=== PATIENT | male | born 1960 | race Caucasian/White ===

== ENCOUNTER 2019-11-09 12:55 | Inpatient (IN) | payer MEDICARE, SELFPAY ==
[2019-11-09] VITALS (12 sets, daily range): BP systolic 113–155; BP diastolic 60–96; PULSE 83–98; RESP 8–36; TEMP 37.2–37.4; O2SAT 91–98; BMI 47.4
--- NOTE | 2019-11-09 13:05 | XRR_ITS ---
PROCEDURE INFORMATION: Exam: XR Chest, 1 View Exam date and time: 11/09/2019 2:02 PM Age: 58 years old Clinical indication: Patient HX: Hyperglycemia, copd, cough TECHNIQUE: Imaging protocol: XR of the chest Views: 1 view. COMPARISON: No relevant prior studies available. FINDINGS: Lungs: There is interstitial congestion in the right lower lobe the lungs are otherwise clear. No consolidation. Pleural space: Unremarkable. No pleural effusion. No pneumothorax. Heart/Mediastinum: Unremarkable. No cardiomegaly. Bones/joints: Unremarkable. XR/XR chest 1V portable [id number] IMPRESSION: Nonspecific interstitial congestion right lower lobe Otherwise No acute findings.
--- NOTE | 2019-11-09 13:06 | ECG_ITS ---
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 Measurements Intervals [place] Rate: 93 P: 51 [place]: 206 QRS: 85 QRSD: 75 T: 67 QT: 332 QTc: 414 Interpretive Statements SINUS RHYTHM WITH OCCASIONAL VENTRICULAR PREMATURE COMPLEXES LOW QRS VOLTAGE IN PRECORDIAL LEADS [QRS DEFLECTION < 1.0 mV IN CHEST LEADS] ANTEROSEPTAL MYOCARDIAL INFARCTION , OF INDETERMINATE AGE [40+ ms Q WAVE IN V1-V4] Compared to ECG 04/06/2019 04:43:59 Ventricular premature complex(es) now present Low QRS voltage now present Myocardial infarct finding still present Electronically Signed On 11-09-2019 17:06:18 CDT by Sarika Mackey M.D. [id number]
--- NOTE | 2019-11-09 13:14 | W.ED.GENADLT ---
HPI - General Adult General: Chief complaint: General Medical Stated complaint: HYPERGLYCEMIA, COPD Time Seen by Provider: 11/09/19 12:56 Source: patient and EMS Mode of arrival: EMS Limitations: no limitations History of Present Illness: HPI narrative: Mr. Johnson is a very nice 58-year-old male who comes in complaining of shortness of breath and elevated blood sugar. He states his blood sugars been progressively elevating over the past 2 weeks. He also complains of shortness of breath with the cough productive of clear to occasionally brown sputum. He denies any fever. He states he has been quarantining himself through the COVID pandemic and has not been exposed anyone that has had symptoms suggestive of COVID. He states though he can hear himself wheezing and he has dyspnea on exertion and also orthopnea. Patient states he does have congestive heart failure but does not believe that he is putting any increased water weight on and denies any increased swelling in his legs. He denies any chest pain. He receives an albuterol treatment in route without much improvement. The patient has had increase his oxygen requirement of his COPD from 3 L up to 4. The patient states overall he is just feeling much worse and this again is taken course over the past 2 weeks. Associated symptoms: Reports dyspnea; Deny chest pain, confusion, diaphoresis, headache(s), malaise, nausea, rash, palpitations, syncope or vomiting Review of Systems Const: Denies: fever(s), chills, body aches, fatigue, malaise or diaphoresis Eyes: Denies: change in vision, blurry vision, blind spots, photophobia, eye discharge or eye redness ENMT: Denies: throat pain, odynophagia, hoarseness, swelling of lips/tongue, oral sores, ear or mastoid pain, ear discharge, change in hearing or nasal discharge Card: Reports: swelling of feet/ankles, dyspnea on exertion and orthopnea; Denies: chest pain, palpitations, irregular heart rhythm, edema, lightheadedness, syncope or pre-syncope Resp: Reports: dyspnea, productive cough and wheezing; Denies: non-productive cough, hemoptysis or chest congestion GI: Denies: abdominal pain, nausea, vomiting, hematemesis, coffee ground emesis, heartburn, diarrhea, constipation, GI cramping, hematochezia or melena : Denies: flank pain, dysuria, urinary frequency, urinary urgency or hematuria Musc: Denies: neck pain, back pain, extremity pain, extremity swelling, joint pain, joint swelling, joint redness, joint warmth or joint stiffness Skin/Breast: Denies: rash, pruritus, erythema, skin tenderness or jaundice Neuro: Denies: headache(s), numbness in extremities, weakness in extremities, sensory changes, lack of coordination, difficulty walking, dizziness, vertigo, confusion, Slurred speech present or seizure-like activity Jean Pierre/Lymph: Denies: easy bruising, easy bleeding, petechiae, purpura or enlarged lymph nodes All/Imm: Denies: urticaria, throat swelling, tongue swelling, facial swelling or acute wheezing PFSH ED PFSH: Medical History (Updated 11/09/19 @ 16:09 by Ady Hernandes MD) Alcoholism CKD 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 Congestive heart failure Diastolic COPD (chronic obstructive pulmonary disease) DM type 2 (diabetes mellitus, type 2) Hypertension Morbid obesity Obstructive sleep apnea Peripheral neuropathy Tetrahydrocannabinol (THC) use disorder, mild, abuse Surgical History H/O cardiac catheterization S/P herniorrhaphy Family History (Updated 11/09/19 @ 16:04 by Ady Hernandes MD) Other CAD (coronary artery disease) Social History (Updated 11/09/19 @ 16:04 by Ady Hernandes MD) Smoking and tobacco status: current every day smoker Alcohol intake: former Substance/Drug Use: current Substance/Drug use type: Marijuana Physical Exam Const: COMMON NORMALS: no acute distress, patient oriented x3, no limitations, healthy appearing and well nourished GENERAL APPEARANCE: cooperative, well kempt and well developed HENMT: COMMON NORMALS: normocephalic, atraumatic, external ears normal, EAC's normal and Normal external nose present HEAD & SCALP: normal to inspection, normocephalic and atraumatic FACE & SINUS: normal facial exam and face symmetric NOSE: Normal external nose present and Normal nares present EXTERNAL EAR: Yes external ears normal EXTERNAL AUDITORY CANAL: EAC's normal MOUTH: Normal oral and palatal mucosa present, lip normal and tongue normal Eye: COMMON NORMALS: Equal, round and reactive pupils present and conjunctivae normal GENERAL EYE: appearance normal, both eyes and all related structures ALIGNMENT: Yes alignment normal PERIORBITAL: periorbital findings normal EYELID: eyelids normal CONJUNCTIVA: Yes conjunctivae normal SCLERA: sclerae normal PUPIL: Yes Equal, round and reactive pupils present Neck/C-Spine: COMMON NORMALS: full ROM, no lymphadenopathy, supple, no meningeal signs and no JVD GENERAL: Yes normal visual inspection and Yes trachea midline Chest: COMMONS NORMALS: normal inspection of the chest and normal palpation of entire chest wall Resp: COMMON NORMALS: normal respiratory effort, No retractions and No use of accessory muscles EFFORT & INSPECTION: Yes able to speak in complete sentences and Yes symmetric chest movement AUSCULTATION: rales, rhonchi and wheezes Cardio: COMMON NORMALS: no JVD, regular rate, regular rhythm, S1 normal heart sound present and S2 normal heart sound present RATE: regular rate RHYTHM: regular rhythm HEART SOUNDS: S1 normal heart sound present, S2 normal heart sound present, no click, no gallops, no murmurs, no rubs and abnormal split S2 GI: COMMON NORMALS: Soft to palpation and No hepatosplenomegaly present PALPATION: Yes Soft to palpation, No Tenderness to palpation present (GI), No Guarding due to palpation present (GI), No Rigid due to palpation, Yes No hepatosplenomegaly present, No Hernia present, No Palpable mass present and No Pulsatile mass present : COMMON NORMALS: Yes no CVA tenderness BLADDER/KIDNEY EXAM: Yes no CVA tenderness Back/Pelvis: COMMON NORMALS: no CVA tenderness, thoracic and lumbar spine normal to inspection, no thoracic nor lumbar tenderness and thoraco-lumbar ROM normal Extremity: COMMON NORMALS: normal to inspection, full ROM, capillary refill normal, no joint enlargement, no clubbing, cyanosis or edema and no calf tenderness Neuro: COMMON NORMALS: patient oriented x3, CN's II-XII intact bilaterally, moves all extremities, no focal motor deficits and no sensory deficits noted MENINGEAL SIGNS: Yes no meningeal signs SPEECH: speech normal Psych: COMMON NORMALS: mental status grossly normal, Normal thought process present, cooperative, normal affect, speech normal and activity/motor behavior normal APPEARANCE: Yes well kempt SPEECH: Yes normal speech THOUGHT PROCESS: Normal thought process present Skin: COMMON NORMALS: no rashes or lesions noted, turgor normal, no jaundice, no petechiae and no mottling GENERAL SKIN EXAM: no rashes or lesions noted and turgor normal Course Vital Signs: Vital signs: Vital Signs Temperature 99.3 F 11/09/19 12:57 Pulse Rate 85 11/09/19 17:16 Respiratory Rate 28 H 11/09/19 17:16 Blood Pressure 135/60 11/09/19 17:16 Pulse Oximetry 91 11/09/19 17:16 MDM - General Adult MDM Narrative: Medical decision making narrative: Patient is feeling better. Patient looks like he has pneumonia in the right lower lobe and does indeed have significantly high sugar. There is no evidence of congestive heart failure. The case was endorsed to Dr. Hernandes and he agreed to come and assess the patient for admission. Lab Data: Attestation: I reviewed the patient's lab results. Labs: Lab Results 11/09/19 11/09/19 11/09/19 Range/Units 13:20 13:30 13:35 WBC 11.9 H (4.0-10.0) 10^3/ uL RBC 5.54 H (4.1-5.3) 10^6/u L Hgb 16.6 (11.7-16.6) g/dL Hct 50.6 (42.0-52.0) % MCV 91.3 (80-94) fL MCH 30.0 (28.0-34.0) pg MCHC 32.8 (30.0-36.0) g/dL RDW 13.1 (12.1-15.1) % Plt Count 219 (130-400) 10^3/c mm MPV 11.8 H (7.4-10.4) fL Neut % (Auto) 77.9 % Lymph % (Auto) 14.2 % [place] % (Auto) 5.7 % Eos % (Auto) 1.1 % Baso % (Auto) 0.6 % Neut # (Auto) 9.3 H (1.8-7.7) 10^3/u L Lymph # (Auto) 1.7 (0.8-4.8) 10^3/u L [place] # (Auto) 0.7 (0.2-0.9) 10^3/u L Eos # (Auto) 0.1 (0.0-0.8) 10^3/u L Baso # (Auto) 0.1 (0.0-0.1) 10^3/u L Nucleated RBC % (a uto) 0 % Nucleated RBCs # 0.0 /100WBC PT (10.5-13.3) SECO NDS INR (0.8-1.2) Specimen Type Arterial Sample Site Radial, left ABG pH 7.40 (7.35-7.45) ABG pCO2 46.0 H (35-45) mmHg ABG pO2 58.8 L (80.0-100.0) mmH g ABG HCO3 28.4 H (22-26) mmol/L ABG O2 Saturation 92.6 ABG Base Excess 2.8 H (-2.0-2.0) mmol/ L Marcus Test Pos Hematocrit 51.2 (42-52) % Hgb O2 Saturation 88.0 L (95-100) % Carboxyhemoglobin 4.6 (0.4-20.1) %THgb Methemoglobin 0.3 L (0.4-1.5) % Total Hemoglobin 16.7 (14-18) g/dL Sodium 128.0 L (131-143) mmol/L Potassium 5.0 (3.5-5.0) mmol/L Glucose 533.0 H (70-115) mg/dL Ionized Calcium 1.2 (1.1-1.4) mmol/L O2 Delivery Device Nc O2 Liters/Min 6.0 % Senior Functional Analyst ID Amh Chloride (98-107) mmol/L Carbon Dioxide (22-29) mmol/L Anion Gap (5-19) BUN (6-20) mg/dL Creatinine (0.7-1.2) mg/dL GFR Calculation (90-130) mL/min Calculated Osmolal ity (285-295) mOsm/k g Lactic Acid (0.5-2.2) mmol/L Calcium (8.5-10.5) mg/dL Magnesium (1.7-2.3) mg/dL Total Bilirubin (0.15-1.2) mg/dL AST (0-40) U/L ALT (0-41) U/L Alkaline Phosphata se (40-130) IU/L Troponin T Baselin e (0-15) ng/L Troponin T 120 Min [place] (0-15) ng/L Delta Troponin T (0-10) ABS# NT-Pro-B Natriuret Pep (0-125) pg/mL Total Protein (6.6-8.7) g/dL Albumin (3.5-5.2) g/dL Globulin (1.3-4.6) g/dL Urine Color Yellow (Yellow) Urine Appearance Clear (CLEAR) Urine pH 5 (5-7) Ur Specific Gravit y 1.010 (1.005-1.030) Urine Protein Neg (Negative) Urine Glucose (UA) 4+ H (Normal) Urine Ketones Negative (Negative) Urine Blood 2+ H (Negative) Urine Nitrate Negative (Negative) Urine Bilirubin Neg (NEGATIVE) Urine Urobilinogen Neg (Negative) mg/dL Ur Leukocyte Marylu ase Negative (Negative) Urine RBC 0-4 H (0-2) /hpf Urine WBC None (0-5) /hpf Ur Squamous Epith Cells 0-4 H (0-5) Urine Bacteria Trace (NONE) 11/09/19 11/09/19 11/09/19 Range/Units 13:35 13:35 13:35 WBC (4.0-10.0) 10^3/ uL RBC (4.1-5.3) 10^6/u L Hgb (11.7-16.6) g/dL Hct (42.0-52.0) % MCV (80-94) fL MCH (28.0-34.0) pg MCHC (30.0-36.0) g/dL RDW (12.1-15.1) % Plt Count (130-400) 10^3/c mm MPV (7.4-10.4) fL Neut % (Auto) % Lymph % (Auto) % [place] % (Auto) % Eos % (Auto) % Baso % (Auto) % Neut # (Auto) (1.8-7.7) 10^3/u L Lymph # (Auto) (0.8-4.8) 10^3/u L [place] # (Auto) (0.2-0.9) 10^3/u L Eos # (Auto) (0.0-0.8) 10^3/u L Baso # (Auto) (0.0-0.1) 10^3/u L Nucleated RBC % (a uto) % Nucleated RBCs # /100WBC PT 13.20 (10.5-13.3) SECO NDS INR 0.97 (0.8-1.2) Specimen Type Sample Site ABG pH (7.35-7.45) ABG pCO2 (35-45) mmHg ABG pO2 (80.0-100.0) mmH g ABG HCO3 (22-26) mmol/L ABG O2 Saturation ABG Base Excess (-2.0-2.0) mmol/ L Marcus Test Hematocrit (42-52) % Hgb O2 Saturation (95-100) % Carboxyhemoglobin (0.4-20.1) %THgb Methemoglobin (0.4-1.5) % Total Hemoglobin (14-18) g/dL Sodium 127 L (131-143) mmol/L Potassium 5.2 H (3.5-5.0) mmol/L Glucose 578 H* (70-115) mg/dL Ionized Calcium (1.1-1.4) mmol/L O2 Delivery Device O2 Liters/Min % Senior Functional Analyst ID Chloride 87 L (98-107) mmol/L Carbon Dioxide 27 (22-29) mmol/L Anion Gap 18.2 (5-19) BUN 20 (6-20) mg/dL Creatinine 1.3 H (0.7-1.2) mg/dL GFR Calculation 56.7 L (90-130) mL/min Calculated Osmolal ity 287 (285-295) mOsm/k g Lactic Acid 2.2 (0.5-2.2) mmol/L Calcium 9.7 (8.5-10.5) mg/dL Magnesium 2.5 H (1.7-2.3) mg/dL Total Bilirubin 0.5 (0.15-1.2) mg/dL AST 16 (0-40) U/L ALT 26 (0-41) U/L Alkaline Phosphata se 147 H (40-130) IU/L Troponin T Baselin e (0-15) ng/L Troponin T 120 Min [place] (0-15) ng/L Delta Troponin T (0-10) ABS# NT-Pro-B Natriuret Pep 39 (0-125) pg/mL Total Protein 8.3 (6.6-8.7) g/dL Albumin 4.4 (3.5-5.2) g/dL Globulin 3.9 (1.3-4.6) g/dL Urine Color (Yellow) Urine Appearance (CLEAR) Urine pH (5-7) Ur Specific Gravit y (1.005-1.030) Urine Protein (Negative) Urine Glucose (UA) (Normal) Urine Ketones (Negative) Urine Blood (Negative) Urine Nitrate (Negative) Urine Bilirubin (NEGATIVE) Urine Urobilinogen (Negative) mg/dL Ur Leukocyte Marylu ase (Negative) Urine RBC (0-2) /hpf Urine WBC (0-5) /hpf Ur Squamous Epith Cells (0-5) Urine Bacteria (NONE) 11/09/19 11/09/19 Range/Units 13:35 15:40 WBC (4.0-10.0) 10^3/ uL RBC (4.1-5.3) 10^6/u L Hgb (11.7-16.6) g/dL Hct (42.0-52.0) % MCV (80-94) fL MCH (28.0-34.0) pg MCHC (30.0-36.0) g/dL RDW (12.1-15.1) % Plt Count (130-400) 10^3/c mm MPV (7.4-10.4) fL Neut % (Auto) % Lymph % (Auto) % [place] % (Auto) % Eos % (Auto) % Baso % (Auto) % Neut # (Auto) (1.8-7.7) 10^3/u L Lymph # (Auto) (0.8-4.8) 10^3/u L [place] # (Auto) (0.2-0.9) 10^3/u L Eos # (Auto) (0.0-0.8) 10^3/u L Baso # (Auto) (0.0-0.1) 10^3/u L Nucleated RBC % (a uto) % Nucleated RBCs # /100WBC PT (10.5-13.3) SECO NDS INR (0.8-1.2) Specimen Type Sample Site ABG pH (7.35-7.45) ABG pCO2 (35-45) mmHg ABG pO2 (80.0-100.0) mmH g ABG HCO3 (22-26) mmol/L ABG O2 Saturation ABG Base Excess (-2.0-2.0) mmol/ L Marcus Test Hematocrit (42-52) % Hgb O2 Saturation (95-100) % Carboxyhemoglobin (0.4-20.1) %THgb Methemoglobin (0.4-1.5) % Total Hemoglobin (14-18) g/dL Sodium (131-143) mmol/L Potassium (3.5-5.0) mmol/L Glucose (70-115) mg/dL Ionized Calcium (1.1-1.4) mmol/L O2 Delivery Device O2 Liters/Min % Senior Functional Analyst ID Chloride (98-107) mmol/L Carbon Dioxide (22-29) mmol/L Anion Gap (5-19) BUN (6-20) mg/dL Creatinine (0.7-1.2) mg/dL GFR Calculation (90-130) mL/min Calculated Osmolal ity (285-295) mOsm/k g Lactic Acid (0.5-2.2) mmol/L Calcium (8.5-10.5) mg/dL Magnesium (1.7-2.3) mg/dL Total Bilirubin (0.15-1.2) mg/dL AST (0-40) U/L ALT (0-41) U/L Alkaline Phosphata se (40-130) IU/L Troponin T Baselin e 37 H (0-15) ng/L Troponin T 120 Min [place] 36.74 H (0-15) ng/L Delta Troponin T -0.26 L (0-10) ABS# NT-Pro-B Natriuret Pep (0-125) pg/mL Total Protein (6.6-8.7) g/dL Albumin (3.5-5.2) g/dL Globulin (1.3-4.6) g/dL Urine Color (Yellow) Urine Appearance (CLEAR) Urine pH (5-7) Ur Specific Gravit y (1.005-1.030) Urine Protein (Negative) Urine Glucose (UA) (Normal) Urine Ketones (Negative) Urine Blood (Negative) Urine Nitrate (Negative) Urine Bilirubin (NEGATIVE) Urine Urobilinogen (Negative) mg/dL Ur Leukocyte Marylu ase (Negative) Urine RBC (0-2) /hpf Urine WBC (0-5) /hpf Ur Squamous Epith Cells (0-5) Urine Bacteria (NONE) Imaging Data^: CXR: My impression: Cardiomegaly with possible right lower lobe infiltrate. EKG Data^: EKG 1: Attestation: I personally reviewed and interpreted this EKG as follows: EKG interpretation date: 11/09/19 EKG interpretation time: 15:41 Interpretation: Normal sinus rhythm at 80 beats a minute, nonspecific ST and T wave changes. Computer generated interpretation: Chest X-Ray 11/09/19 13:05 IMPRESSION: Nonspecific interstitial congestion right lower lobe Otherwise No acute findings. Discharge Plan Discharge Patient Disposition: Admitted As Inpatient Admit Provider: Ady Hernandes Clinical Impression: Acute exacerbation of chronic obstructive pulmonary disease Condition: Stable Discharge Date/Time: 11/09/19 18:08 Coding Level of Care Code ED Machine Shop Specialist for Chg Fwd Exam Comprehensive
[2019-11-09 13:40] LABS: PO2 ABG 58.8 mmHg (80.0-100.0)
[2019-11-09 13:41] LABS: Base Excess ABG 2.8 mmol/L (-2.0-2.0); Blood Gas Allen Test POS; Blood Gas Operator Identificat AMH; HCO3 ABG 28.4 mmol/L (22-26); Oxygen Device NC; Oxygen Saturation ABG 92.6
[2019-11-09 13:42] LABS: Arterial Blood Gas Hematocrit 51.2 % (42-52); Blood Gas Sample Type ARTERIAL; Carboxyhemoglobin 4.6 %THgb (0.4-20.1); Ionized Calcium Level - ABG 1.2 mmol/L (1.1-1.4); Methemoglobin 0.3 % (0.4-1.5); Total Hemoglobin 16.7 g/dL (14-18)
[2019-11-09 14:04] LABS: Basophils # 0.1 10^3/uL (0.0-0.1); Basophils % 0.6 %; Eosinophils # 0.1 10^3/uL (0.0-0.8); Eosinophils % 1.1 %; Hematocrit 50.6 % (42.0-52.0); Hemoglobin 16.6 g/dL (11.7-16.6); Lymphocytes # 1.7 10^3/uL (0.8-4.8); Lymphocytes % 14.2 %; Mean Corpuscular HGB Conc 32.8 g/dL (30.0-36.0); Mean Corpuscular Volume 91.3 fL (80-94); Mean Platelet Volume 11.8 fL (7.4-10.4); Monocytes # 0.7 10^3/uL (0.2-0.9); Monocytes % 5.7 %; Neutrophils # 9.3 10^3/uL (1.8-7.7); Neutrophils % 77.9 %; Nucleated Red Blood Cells % 0 %; Platelet Count 219 10^3/cmm (130-400); Red Blood Count 5.54 10^6/uL (4.1-5.3); Red Cell Distribution Width 13.1 % (12.1-15.1); White Blood Count 11.9 10^3/uL (4.0-10.0)
[2019-11-09 14:30] LABS: Blood Urine 2+ (Negative); Glucose Urine UA 4+ (Normal); Ketones Urine Negative (Negative); Protein Urine Neg (Negative); Urine Appearance Clear (CLEAR); Urine Color Yellow (Yellow); pH Urine 5 (5-7)
[2019-11-09 14:31] LABS: Lactic Sepsis W/Reflex 2.2 mmol/L (0.5-2.2)
[2019-11-09 14:31] LABS: Add Urine Culture? No; Bacteria Urine TRACE; Bilirubin Urine Neg (NEGATIVE); Leukocyte Esterase Urine Negative (Negative); Nitrate Urine Negative (Negative); RBC Urine 0-4 /hpf (0-2); Squamous Epithelial Cell Urine 0-4 (0-5); Urobilinogen Urine Neg (Negative)
[2019-11-09 14:35] LABS: Troponin(5th) Baseline 37 ng/L (0-15)
[2019-11-09 14:43] LABS: Alanine Aminotransferase 26 U/L (0-41); Albumin Level 4.4 g/dL (3.5-5.2); Alkaline Phosphatase 147 IU/L (40-130); Anion Gap 18.2 (5-19); Aspartate Amino Transferase 16 U/L (0-40); Blood Urea Nitrogen 20 mg/dL (6-20); Calcium 9.7 mg/dL (8.5-10.5); Carbon Dioxide 27 mmol/L (22-29); Chloride 87 mmol/L (98-107); Globulin 3.9 g/dL (1.3-4.6); Glomerular Filtration Rate 56.7 mL/min (90-130); Magnesium 2.5 mg/dL (1.7-2.3); NT Pro B Type Natriuretic Pept 39 pg/mL (0-125); Osmolality Calculated 287 mOsm/kg (285-295); Potassium 5.2 mmol/L (3.5-5.1); Sodium 127 mmol/L (136-145); Total Bilirubin 0.5 mg/dL (0.15-1.2); Total Protein 8.3 g/dL (6.6-8.7)
[2019-11-09 14:45] LABS: Glucose 578 mg/dL (65-115)
--- NOTE | 2019-11-09 15:06 | ECG_ITS ---
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 Measurements Intervals [place] Rate: 80 P: 62 FL: 200 QRS: 96 QRSD: 85 T: 69 QT: 364 QTc: 420 Interpretive Statements SINUS RHYTHM BORDERLINE RIGHT AXIS DEVIATION [QRS AXIS > 90] ANTEROSEPTAL MYOCARDIAL INFARCTION , OF INDETERMINATE AGE Compared to ECG 11/09/2019 13:23:16 Ventricular premature complex(es) no longer present Myocardial infarct finding still present Electronically Signed On 11-09-2019 17:10:46 CDT by Sarika Mackey M.D. [id number]
[2019-11-09 15:10] LABS: INR 0.97 (0.8-1.2)
[2019-11-09] MEDS: levofloxacin-dextrose 5 % 750 MG/150 ML PREMIX 150 MG IV (15:10)
[2019-11-09] MEDS: sodium chloride 0.9% 1,000 ML 999 ML IV (15:11)
[2019-11-09 15:28] LABS: Reflex Lactate Order REFLEX LACTIC ORDERD
--- NOTE | 2019-11-09 15:59 | P.HP_ITS ---
Providers/Chief Complaint Chief Complaint: HYPERGLYCEMIA, COPD History of Present Illness Mingo Johnson is a 58 year old male who presents with shortness of breath. He states he has been short of breath for the last 3 days more than his usual baseline. He typically uses about 5 L of oxygen per nasal cannula, trilogy at night. He reports he has had a cough productive of dark sputum. He reports no blood in his sputum. He denies any chest pain. He denies any COVID exposure. He reports no fever, or chills. He reports he continues to smoke. Review of Systems General: Reports: 10 or more systems reviewed and unremarkable except in HPI and below Const: Denies: fever(s), chills or body aches Eyes: Denies: change in vision ENMT: Denies: throat pain or nasal discharge Card: Denies: chest pain Resp: Reports: dyspnea, productive cough and wheezing; Denies: hemoptysis GI: Denies: abdominal pain, nausea or vomiting : Denies: flank pain Musc: Denies: neck pain Skin/Breast: Denies: rash Neuro: Denies: headache(s) Psych: Denies: anxiety Endo: Denies: polyuria Jean Pierre/Lymph: Denies: easy bruising All/Imm: Denies: urticaria Medications/Allergies Home Medications Medication Instructions Recorded Confirmed Last Taken Type amlodipine 5 mg PO DAILY 11/09/19 11/09/19 11/09/19 History aspirin 81 mg PO DAILY 11/09/19 11/09/19 Unknown History furosemide 40 mg PO DAILY 11/09/19 11/09/19 11/09/19 History ipratropium-albuterol [Combivent 1 puff INHALATION QID 11/09/19 11/09/19 11/09/19 History Respimat] metformin 500 mg PO BID 11/09/19 11/09/19 11/09/19 History Allergies Allergy/AdvReac Type Severity Reaction Status Date / Time No Known Allergies Allergy Verified 11/09/19 15:16 PFSH Acute PFSH: Medical History (Updated 11/09/19 @ 16:09 by Ady Hernandes MD) Alcoholism CKD 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 Congestive heart failure Diastolic COPD (chronic obstructive pulmonary disease) DM type 2 (diabetes mellitus, type 2) Hypertension Morbid obesity Obstructive sleep apnea Peripheral neuropathy Tetrahydrocannabinol (THC) use disorder, mild, abuse Surgical History H/O cardiac catheterization S/P herniorrhaphy Family History (Updated 11/09/19 @ 16:04 by Ady Hernandes MD) Other CAD (coronary artery disease) Social History (Updated 11/09/19 @ 16:04 by Ady Hernandes MD) Smoking and tobacco status: current every day smoker Alcohol intake: former Substance/Drug Use: current Substance/Drug use type: Marijuana Vitals/I&O/Wt Last Vital Signs Temp 99.3 F 11/09/19 12:57 Pulse 83 11/09/19 15:17 Resp 36 H 11/09/19 15:17 BP 133/65 11/09/19 15:17 Pulse Ox 93 11/09/19 15:17 Weight last 48 hrs Weight 154.221 kg Physical Exam Narrative: EXAM NARRATIVE: General exam and white male with moderate respiratory distress HEENT: Pupils equally round. Oropharynx clear. Neck is supple no lymphadenopathy thyromegaly Cardiovascular regular rate and rhythm without murmur Lungs faint bilateral expiratory wheeze and diminished breath sounds bilaterally Abdomen is soft, obese, nontender. Organomegaly cannot be determined was deferred Extremity venous stasis changes. Trace edema bilaterally. Skin no rash Neuro no focal deficits Data : 11/09/19 13:35 11/09/19 13:35 Micro: Microbiology 11/09/19 13:32 Blood Culture - Preliminary Blood SPECIMEN COLLECTED 11/09/19 13:35 Blood Culture - Preliminary Blood SPECIMEN COLLECTED Other data: EKG demonstrates normal sinus rhythm, normal axis, Q waves anteriorly. ABG with pH 7.40, PCO2 46, PO2 58 LFTs largely normal. Troponin 37, BNP 39, urinalysis without evidence of infection Chest x-ray with congestion, possible pneumonia right lung A&P Assessment and plan (1) Acute exacerbation of chronic obstructive pulmonary disease: Received IV steroids in the ER. We will continue prednisone 40 mg a day, monitoring hyperglycemia closely. DuoNeb every 4 hours Pulmicort Status: Acute (2) Pneumonia: IV Levaquin Sputum culture and blood culture COVID testing, appropriate isolation Status: Acute (3) Acute respiratory failure with hypoxia: Oxygen as needed Continue trilogy at night and as needed. He uses this for obstructive sleep apnea as well. Status: Acute (4) Hyperkalemia: Mild. Recheck in the morning Status: Acute (5) Hyperglycemia: He is received subcutaneous insulin in the ER. We will give him 20 units of Lantus, aggressive sliding scale Suspect uncontrolled diabetes. Check hemoglobin A1c Status: Acute Additional A&P Information Some lower extremity edema. Check bilateral venous duplex. Type 2 diabetes, suspect poor control. Hemoglobin A1c ordered. History of heart failure with preserved EF, currently compensated Morbid obesity Tobacco dependency. Discussed cessation counseled 3 to 5 minutes Chronic kidney disease stage II History of THC use History of hypertension. Continue home medications. Limited code. Does not want intubation, mechanical ventilation but all other treatments are okay. Lovenox for DVT prophylaxis Attestations Medical Necessity Statement*: Will need greater than 2 midnight stay for evaluation and treatment of COPD exacerbation Time Spent in Patient Care: Greater than 35 minutes Coding Level of Care Code Acute Chemist Instrumentation for Melanie Donaldson Diagnoses Acute exacerbation of chronic obstructive pulmonary disease J44.1 Pneumonia J18.9 Acute respiratory failure with hypoxia J96.01 Hyperkalemia E87.5 Hyperglycemia R73.9
[2019-11-09 16:16] LABS: Troponin 5 2HR 36.74 ng/L (0-15)
[2019-11-09 16:38] LABS: Troponin 5 2HR Delta -0.26 ABS# (0-10)
[2019-11-09] MEDS: sodium chloride 0.9% 1,000 ML 100 ML IV (16:48)
[2019-11-09 17:19] LABS: Glucose Point of Care 427 mg/dL (70-110)
--- NOTE | 2019-11-09 17:25 | PC.NURSE ---
attempted to call report but was told the nurse was busy and she would call me back
[2019-11-09 17:27] LABS: Lactic Acid level (Lactate) 2.1 mmol/L (0.5-2.2)
--- NOTE | 2019-11-09 19:06 | ECG_ITS ---
[facility] Test Date: 2019-11-09 Pat Name: Mingo Johnson Department: Room: ICU01 Gender: Male Clinical Review Nurse: RASHARD MIRELES: 1960 Requested By: Colette Resendez Order Number: [id number] Efrain MD: Sarika Mackey M.D. Measurements Intervals [place] Rate: 95 P: 56 [place]: 206 QRS: 81 QRSD: 77 T: 28 QT: 324 QTc: 407 Interpretive Statements SINUS RHYTHM LOW QRS VOLTAGE IN PRECORDIAL LEADS POSSIBLE ANTERIOR MYOCARDIAL INFARCTION, OF INDETERMINATE AGE Compared to ECG 11/09/2019 15:14:03 Low QRS voltage now present Myocardial infarct finding still present Electronically Signed On 11-09-2019 21:52:45 CDT by Sarika Mackey M.D. [id number]
[2019-11-09 19:14] LABS: Glucose Point of Care 413 mg/dL (70-110)
[2019-11-09] MEDS: insulin glargine 100 units/1 mL 20 UNIT SUBCUT (19:23)
[2019-11-09 19:35] LABS: Estmated Average Glucose 263; Hemoglobin A1C 10.8 % (4.0-6.0)
[2019-11-09 19:55] LABS: Troponin 5 6HR 28.85 ng/L (0-15)
--- NOTE | 2019-11-09 20:15 | PC.NURSE ---
In bedside shift report dayshift RN reports giving the lovenox and novolog. Patient also confirms this was done. Night RN charted against it d/t no prior documentation.
[2019-11-09] MEDS: ipratropium-albuterol 3 mL Neb INHALATION ×2 (20:27→23:52)
[2019-11-09] MEDS: budesonide 0.5 mg/2 mL Neb INHALATION (20:27)
--- NOTE | 2019-11-09 20:54 | PC.NURSE ---
page to on elevated BG.
[2019-11-09 20:55] LABS: Glucose Point of Care 543 mg/dL (70-110)
[2019-11-10] VITALS (28 sets, daily range): BP systolic 102–163; BP diastolic 65–101; PULSE 66–97; RESP 8–30; TEMP 36.7–37.2; O2SAT 90–100
[2019-11-10] MEDS: ipratropium-albuterol 3 mL Neb INHALATION ×5 (04:08→19:58)
[2019-11-10 04:52] LABS: Basophils % 0.2 %; Hematocrit 46.4 % (42.0-52.0); Hemoglobin 14.9 g/dL (11.7-16.6); Lymphocytes # 0.8 10^3/uL (0.8-4.8); Lymphocytes % 5.2 %; Mean Corpuscular HGB Conc 32.1 g/dL (30.0-36.0); Mean Corpuscular Hemoglobin 29.7 pg (28.0-34.0); Mean Corpuscular Volume 92.6 fL (80-94); Mean Platelet Volume 11.9 fL (7.4-10.4); Monocytes # 0.4 10^3/uL (0.2-0.9); Monocytes % 2.8 %; Neutrophils # 14.1 10^3/uL (1.8-7.7); Neutrophils % 90.8 %; Nucleated Red Blood Cells % 0 %; Platelet Count 203 10^3/cmm (130-400); Red Blood Count 5.01 10^6/uL (4.1-5.3); Red Cell Distribution Width 13.2 % (12.1-15.1); White Blood Count 15.6 10^3/uL (4.0-10.0)
[2019-11-10 05:18] LABS: Anion Gap 21.1 (5-19); Blood Urea Nitrogen 30 mg/dL (6-20); Calcium 8.8 mg/dL (8.5-10.5); Carbon Dioxide 23 mmol/L (22-29); Chloride 87 mmol/L (98-107); Creatinine Clr Calc Pharmacy 86.9366; Glomerular Filtration Rate 52.1 mL/min (90-130); Osmolality Calculated 281 mOsm/kg (285-295); Potassium 6.1 mmol/L (3.5-5.1); Sodium 125 mmol/L (136-145)
[2019-11-10 05:24] LABS: Glucose 530 mg/dL (65-115)
--- NOTE | 2019-11-10 05:26 | PC.NURSE ---
page to on blood glucose and potssium level.
--- NOTE | 2019-11-10 05:43 | ECG_ITS ---
[facility] Test Date: 2019-11-10 Pat Name: Mingo Johnson Department: Room: ICU01 Gender: Male Document Control Assistant: : 1960 Requested By: Joel Schwarz Order Number: [id number] Efrain MD: Joel Armenta M.D. Measurements Intervals [place] Rate: 81 P: 33 [place]: 192 QRS: 83 QRSD: 84 T: 71 QT: 350 QTc: 408 Interpretive Statements SINUS RHYTHM LOW QRS VOLTAGE IN PRECORDIAL LEADS [QRS DEFLECTION < 1.0 mV IN CHEST LEADS] ANTEROSEPTAL MYOCARDIAL INFARCTION [40+ ms Q WAVE IN V1-V4], OF INDETERMINATE AGE Compared to ECG 11/09/2019 19:32:07 No significant changes Electronically Signed On 11-10-2019 21:13:35 CDT by Joel Armenta M.D. [id number]
[2019-11-10] MEDS: sodium polystyrene sulfonate 15 gm/60 mL Btl PO (06:00)
[2019-11-10] MEDS: insulin regular-human 10 UNIT in SYRINGE 1 EACH IVP (06:00)
--- NOTE | 2019-11-10 07:00 | USCV_ITS ---
Mingo Johnson Age: 58 Gender: M : 1960 Exam Date: 11/10/2019 17:05 Ordering Phys: Ady Hernandes MD Technologist: Janessa Millan Exam Location: [facility] [place] Indication: DVT HISTORY: DVT. PROCEDURES: Venous duplex imaging was performed in bilateral lower extremities. The following venous structures were evaluated: common femoral vein, profunda vein, proximal portion of the greater saphenous vein, superficial femoral vein, and the popliteal vein. In addition, the posterior tibial and peroneal trunk were evaluated. Serial compression, augmentation maneuvers, and spectral Doppler flow evaluation were performed. FINDINGS: Normal 2-D Doppler and augmentation and compressibility throughout the lower extremity venous structures. Additional imaging through the proximal calf veins also reveals no thrombus. Limited evaluation of the greater saphenous vein is patent with no thrombus.. CONCLUSIONS No evidence of DVT in the above-mentioned identifiable veins. Dr Homa Stone MD [facility] (Electronically Signed) Final Date: 10 November 2019 19:03 S
--- NOTE | 2019-11-10 07:36 | PM.PN ---
Subjective Subjective: Interval history: Patient reports he is breathing much better. Feels overall a little bit better. No nausea. Medications: Reviewed: Yes Vitals/I&O/Wt Last Vital Signs Temp 98.3 F 11/10/19 04:00 Pulse 72 11/10/19 04:07 Resp 25 H 11/10/19 04:07 BP 143/88 11/10/19 04:00 Pulse Ox 97 11/10/19 04:07 11/09/19 11/10/19 11/10/19 22:59 06:59 14:59 Intake Total 480 / 480 1480 / 1960 Output Total 350 / 350 650 / 1000 Balance 130 / 130 830 / 960 Weight last 48 hrs Weight 154.221 kg Physical Exam Narrative: EXAM NARRATIVE: General exam Cardiovascular regular rate and rhythm without murmur Lungs diminished breath sounds bilaterally but no significant wheezing Abdomen is soft, obese, nontender. Extremity venous stasis changes. Trace edema bilaterally. Data : 11/10/19 03:30 11/10/19 03:30 Micro: Microbiology 11/09/19 19:45 Gram Stain - Final Sputum - Expectorated Sputum 11/09/19 13:32 Blood Culture - Preliminary Blood SPECIMEN COLLECTED 11/09/19 13:35 Blood Culture - Preliminary Blood SPECIMEN COLLECTED A&P Assessment and plan (1) Acute exacerbation of chronic obstructive pulmonary disease: Received IV steroids in the ER. Discontinue prednisone secondary to marked hyperglycemia. Patient is significantly better with no wheezing. DuoNeb every 4 hours Pulmicort Status: Acute (2) Pneumonia: IV Levaquin Sputum culture and blood culture COVID testing, appropriate isolation Status: Acute (3) Acute respiratory failure with hypoxia: Oxygen as needed Continue BIPAP at night and as needed. He uses this for obstructive sleep apnea as well. Status: Acute (4) Hyperkalemia: Significant hyperkalemia this morning. He was given Kayexalate, insulin. His anion gap is increasing. I am going to initiate an insulin drip which should help and await his repeat potassium at 9. EKG performed earlier demonstrated no QRS widening. He did not get the calcium gluconate ordered earlier. At this point will start insulin drip, recheck potassium. If improving does not need calcium gluconate. Status: Acute (5) Hyperglycemia: He is received subcutaneous insulin in the ER. He received several doses of Lantus, aggressive sliding scale on admission. He is still significantly high. Insulin drip initiated as below Initiate insulin drip. I am worried he may be developing DKA with his increased anion gap. Either way with his hyperkalemia, resistant hyperglycemia this is indicated. Hemoglobin A1c was checked and 10.8. Status: Acute Additional A&P Information Some lower extremity edema. Check bilateral venous duplex. This is pending Type 2 diabetes, suspect poor control. Hemoglobin A1c ordered. This was 10.8 History of heart failure with preserved EF, currently compensated Morbid obesity Tobacco dependency. Discussed cessation counseled 3 to 5 minutes Chronic kidney disease stage II History of THC use History of hypertension. Continue home medications. Limited code. Does not want intubation, mechanical ventilation but all other treatments are okay. Lovenox for DVT prophylaxis Changed to ICU status Attestations Medical Necessity Statement*: Needs continued hospitalization for close monitoring secondary to development of acidosis, hyperkalemia in this patient with respiratory failure. Critical Care Time: 32 minutes of critical care time, spent at bedside, reviewing patient's multiple comorbidities with respiratory failure, hyperkalemia, developing acidosis, likely DKA in this patient who has potential for life-threatening event. Coding Level of Care Code Acute Flight Crew Scheduler for Melanie Donaldson Diagnoses Acute exacerbation of chronic obstructive pulmonary disease J44.1 Pneumonia J18.9 Acute respiratory failure with hypoxia J96.01 Hyperkalemia E87.5 Hyperglycemia R73.9
[2019-11-10] MEDS: amlodipine 5 mg Tablet PO (08:17)
[2019-11-10] MEDS: aspirin 81 mg EC Tablet PO (08:17)
[2019-11-10 08:18] LABS: Glucose Point of Care 566 mg/dL (70-110)
[2019-11-10] MEDS: budesonide 0.5 mg/2 mL Neb INHALATION ×2 (08:19→19:58)
[2019-11-10] MEDS: insulin regular-human 250 UNIT in sodium chloride 0.9% 250 ML 15.4 UNIT IV (08:20)
[2019-11-10 09:42] LABS: Potassium 5.3 mmol/L (3.5-5.1)
[2019-11-10] MEDS: levofloxacin-dextrose 5 % 750 MG/150 ML PREMIX 100 MG IV (13:57)
[2019-11-10] MEDS: sodium chloride 0.9% 1,000 ML 100 ML IV (13:57)
[2019-11-10] MEDS: HYDROcodone-acetaminophen 5-325 mg Tablet 1 TAB PO ×2 (15:06→21:23)
[2019-11-10 15:23] LABS: Glucose Point of Care 336 mg/dL (70-110)
[2019-11-10 15:23] LABS: Glucose Point of Care 490 mg/dL (70-110)
[2019-11-10 15:23] LABS: Glucose Point of Care 506 mg/dL (70-110)
[2019-11-10 15:23] LABS: Glucose Point of Care > 600 mg/dL (70-110)
[2019-11-10 15:23] LABS: Glucose Point of Care 368 mg/dL (70-110)
[2019-11-10 15:23] LABS: Glucose Point of Care 342 mg/dL (70-110)
[2019-11-10 15:23] LABS: Glucose Point of Care > 600 mg/dL (70-110)
[2019-11-10 15:23] LABS: Glucose Point of Care 224 mg/dL (70-110)
[2019-11-10 15:56] LABS: Glucose Point of Care 199 mg/dL (70-110)
[2019-11-10 16:29] LABS: Coronavirus Lab Test PTC N
[2019-11-10 16:46] LABS: Anion Gap 19.8 (5-19); Blood Urea Nitrogen 30 mg/dL (6-20); Calcium 8.9 mg/dL (8.5-10.5); Carbon Dioxide 26 mmol/L (22-29); Chloride 90 mmol/L (98-107); Creatinine Clr Calc Pharmacy 86.9366; Glomerular Filtration Rate 52.1 mL/min (90-130); Glucose 198 mg/dL (65-115); Magnesium 2.3 mg/dL (1.7-2.3); Osmolality Calculated 277 mOsm/kg (285-295); Phosphorus 2.9 mg/dL (2.5-4.5); Potassium 3.8 mmol/L (3.5-5.1); Sodium 132 mmol/L (136-145)
[2019-11-10 17:16] LABS: Glucose Point of Care 191 mg/dL (70-110)
[2019-11-10 18:17] LABS: Glucose Point of Care 247 mg/dL (70-110)
[2019-11-10] MEDS: enoxaparin 40 mg/0.4 mL Syringe SUBCUT (18:17)
[2019-11-10 19:10] LABS: Glucose Point of Care 296 mg/dL (70-110)
[2019-11-10 20:07] LABS: Glucose Point of Care 327 mg/dL (70-110)
[2019-11-10] MEDS: sodium chlor 0.9% + KCl 40 mEq 40 MEQ/1,000 ML BAG 100 MEQ IV (20:36)
[2019-11-10] MEDS: insulin regular-human 250 UNIT in sodium chloride 0.9% 250 ML 20.2 UNIT IV (20:54)
[2019-11-10 21:08] LABS: Glucose Point of Care 312 mg/dL (70-110)
[2019-11-10 22:12] LABS: Glucose Point of Care 223 mg/dL (70-110)
[2019-11-10 23:24] LABS: Glucose Point of Care 277 mg/dL (70-110)
[2019-11-10 23:53] LABS: Anion Gap 15.9 (5-19); Blood Urea Nitrogen 28 mg/dL (6-20); Calcium 8.3 mg/dL (8.5-10.5); Carbon Dioxide 26 mmol/L (22-29); Chloride 92 mmol/L (98-107); Creatinine Clr Calc Pharmacy 86.9366; Glomerular Filtration Rate 52.1 mL/min (90-130); Glucose 238 mg/dL (65-115); Osmolality Calculated 275 mOsm/kg (285-295); Potassium 3.9 mmol/L (3.5-5.1); Sodium 130 mmol/L (136-145)
[2019-11-11] VITALS (33 sets, daily range): BP systolic 134–189; BP diastolic 65–111; PULSE 63–88; RESP 0–24; TEMP 36.4–36.6; O2SAT 78–100
--- NOTE | 2019-11-11 00:36 | PC.NURSE ---
DR NOTIFICATION PER DR MCKEON WE ARE TITRATING INSULIN DRIP BASED ON BLOOD SUGAR RESULT NOT PER PROTOCOL SINCE SHIFT CHANGE WELL ON DAYSHIFT. DR MCKEON GAVE ORDER TO TITRATE INSULIN TO 10 UNITS/HR WHEN BLOOD SUGAR IS BELOW 200.
[2019-11-11 00:45] LABS: Glucose Point of Care 211 mg/dL (70-110)
[2019-11-11 01:15] LABS: Glucose Point of Care 181 mg/dL (70-110)
[2019-11-11 02:10] LABS: Glucose Point of Care 226 mg/dL (70-110)
[2019-11-11] MEDS: ipratropium-albuterol 3 mL Neb INHALATION ×7 (03:18→23:41)
[2019-11-11 03:25] LABS: Glucose Point of Care 140 mg/dL (70-110)
[2019-11-11] MEDS: insulin glargine 100 units/1 mL 20 UNIT SUBCUT ×2 (03:32→08:54)
--- NOTE | 2019-11-11 03:44 | PC.NURSE ---
DR JANINA MCKEON GAVE ORDER TO SHUT INSULIN DRIP OFF AND PUT IN ORDERS FOR SUBQ INSULIN.
[2019-11-11 04:18] LABS: Basophils # 0.1 10^3/uL (0.0-0.1); Basophils % 0.5 %; Eosinophils # 0.1 10^3/uL (0.0-0.8); Hematocrit 45.3 % (42.0-52.0); Hemoglobin 14.4 g/dL (11.7-16.6); Lymphocytes # 2.9 10^3/uL (0.8-4.8); Lymphocytes % 23.6 %; Mean Corpuscular HGB Conc 31.8 g/dL (30.0-36.0); Mean Corpuscular Hemoglobin 29.3 pg (28.0-34.0); Mean Corpuscular Volume 92.1 fL (80-94); Mean Platelet Volume 11.7 fL (7.4-10.4); Monocytes # 0.9 10^3/uL (0.2-0.9); Monocytes % 7.3 %; Neutrophils # 8.1 10^3/uL (1.8-7.7); Neutrophils % 66.7 %; Nucleated Red Blood Cells % 0 %; Platelet Count 201 10^3/cmm (130-400); Red Blood Count 4.92 10^6/uL (4.1-5.3); Red Cell Distribution Width 13.3 % (12.1-15.1); White Blood Count 12.1 10^3/uL (4.0-10.0)
[2019-11-11 04:42] LABS: Anion Gap 13.3 (5-19); Blood Urea Nitrogen 27 mg/dL (6-20); Calcium 8.7 mg/dL (8.5-10.5); Carbon Dioxide 29 mmol/L (22-29); Chloride 95 mmol/L (98-107); Glomerular Filtration Rate 56.7 mL/min (90-130); Glucose 131 mg/dL (65-115); Osmolality Calculated 275 mOsm/kg (285-295); Potassium 4.3 mmol/L (3.5-5.1); Sodium 133 mmol/L (136-145)
--- NOTE | 2019-11-11 05:09 | PC.NURSE ---
SHIFT SUMMARY PT HAS REMAINED ALERT AND ORIENTATED. PT HAS HAD ADEQUATE URINE OUTPUT. PT IV REMAINS PATENT. IV FLUIDS AND INSULIN DRIP OFF PER DR MCKEON ORDER. PT TOLERATED BIPAP MOST OF THE NIGHT. NO RESPIRATORY DISTRESS EVENTS.
[2019-11-11 07:28] LABS: Glucose Point of Care 218 mg/dL (70-110)
[2019-11-11] MEDS: aspirin 81 mg EC Tablet PO (07:57)
[2019-11-11] MEDS: enoxaparin 40 mg/0.4 mL Syringe SUBCUT (07:58)
[2019-11-11] MEDS: amlodipine 5 mg Tablet PO ×2 (07:58→15:02)
[2019-11-11] MEDS: oxyCODONE-APAP 10-325 mg Tablet 1 TAB PO ×2 (08:54→16:30)
[2019-11-11 10:55] LABS: Glucose Point of Care 296 mg/dL (70-110)
--- NOTE | 2019-11-11 11:41 | PM.PN ---
Subjective Subjective: Interval history: Mingo reports he feels little bit tighter in his chest today. Still coughing some. Medications: Reviewed: Yes Vitals/I&O/Wt Last Vital Signs Temp 97.8 F 11/11/19 07:00 Pulse 78 11/11/19 11:33 Resp 18 11/11/19 11:30 BP 160/107 11/11/19 09:00 Pulse Ox 96 11/11/19 11:30 11/10/19 11/11/19 11/11/19 22:59 06:59 14:59 Intake Total 964.044 / 2198.720 470.807 / 2669.527 600 / 600 Output Total 600 / 2850 850 / 850 Balance 364.044 / -651.280 470.807 / -180.473 -250 / -250 Weight last 48 hrs Weight 154.221 kg Physical Exam Narrative: EXAM NARRATIVE: General exam Cardiovascular regular rate and rhythm without murmur Lungs diminished breath sounds bilaterally but no significant wheezing Abdomen is soft, obese, nontender. Extremity venous stasis changes. Trace edema bilaterally. Data : 11/11/19 04:04 11/11/19 04:04 Micro: Microbiology 11/09/19 19:45 Gram Stain - Final Sputum - Expectorated Sputum Sputum Culture - Preliminary 11/09/19 13:35 Blood Culture - Preliminary Blood NEGATIVE TO DATE 11/09/19 13:32 Blood Culture - Preliminary Blood NEGATIVE TO DATE Other data: Venous duplex was negative A&P Assessment and plan (1) Acute exacerbation of chronic obstructive pulmonary disease: Received IV steroids in the ER. Discontinue prednisone secondary to marked hyperglycemia. Slow improvement DuoNeb every 4 hours. Add albuterol every 2 hours. Discontinue Pulmicort, add Advair Status: Acute (2) Pneumonia: IV Levaquin Blood cultures negative to date COVID testing negative Status: Acute (3) Acute respiratory failure with hypoxia: Oxygen as needed Continue BIPAP at night and as needed. He uses this for obstructive sleep apnea as well. Slow improvement Status: Acute (4) Hyperkalemia: Resolved Status: Acute (5) Hyperglycemia: Lantus 20 units subcu today. Aggressive sliding scale. May need more Lantus tonight Hemoglobin A1c was checked and 10.8. Status: Acute Additional A&P Information Some lower extremity edema. Venous duplex negative Type 2 diabetes, suspect poor control. Hemoglobin A1c ordered. This was 10.8 History of heart failure with preserved EF, currently compensated Morbid obesity Tobacco dependency. Discussed cessation counseled 3 to 5 minutes Chronic kidney disease stage II History of THC use History of hypertension. Blood pressure elevated. Increase Norvasc dose. 5 mg of extra Norvasc today x1. Limited code. Does not want intubation, mechanical ventilation but all other treatments are okay. Lovenox for DVT prophylaxis Transfer out of ICU Attestations Medical Necessity Statement*: Needs continued hospitalization for further treatment of pneumonia with IV antibiotics. Coding Level of Care Code Acute [place] Tier for [facility] Anika Diagnoses Acute exacerbation of chronic obstructive pulmonary disease J44.1 Pneumonia J18.9 Acute respiratory failure with hypoxia J96.01 Hyperkalemia E87.5 Hyperglycemia R73.9
--- NOTE | 2019-11-11 13:59 | PC.RESP ---
Smoking Cessation information and a schedule of classes sent to patient.
[2019-11-11] MEDS: levofloxacin-dextrose 5 % 750 MG/150 ML PREMIX 100 MG IV (15:02)
[2019-11-11 16:07] LABS: Glucose Point of Care 351 mg/dL (70-110)
[2019-11-11] MEDS: insulin glargine 100 units/1 mL 30 UNIT SUBCUT (21:11)
[2019-11-11 21:24] LABS: Glucose Point of Care 374 mg/dL (70-110)
[2019-11-11 23:45] LABS: Glucose Point of Care 273 mg/dL (70-110)
[2019-11-12] VITALS (14 sets, daily range): BP systolic 137–161; BP diastolic 79–88; PULSE 60–76; RESP 15–24; TEMP 36.2–37.1; O2SAT 92–99
[2019-11-12] MEDS: ipratropium-albuterol 3 mL Neb INHALATION ×3 (03:07→11:16)
[2019-11-12 07:15] LABS: Glucose Point of Care 328 mg/dL (70-110)
[2019-11-12] MEDS: amlodipine 10 mg Tablet PO (07:24)
[2019-11-12] MEDS: aspirin 81 mg EC Tablet PO (07:24)
[2019-11-12] MEDS: oxyCODONE-APAP 10-325 mg Tablet 1 TAB PO (07:29)
--- NOTE | 2019-11-12 10:16 | DCPLANNER ---
Pg 2 of IM updated and reviewed with pt. No questions, copy provided.
--- NOTE | 2019-11-12 10:40 | P.DS_ITS ---
Discharge Providers Date of Admission: 11/09/19 15:55 Date of Discharge: November 12, 2019 Attending Provider at Admission: Ady Hernandes MD Attending Provider at Discharge: Ady Hernandes MD Diagnoses at Discharge Discharge Diagnosis (1) Acute exacerbation of chronic obstructive pulmonary disease: Status: Acute Problem details: Improved (2) Pneumonia: Status: Acute Problem details: Discharge on Levaquin (3) Acute respiratory failure with hypoxia: Status: Acute (4) Hyperkalemia: Status: Acute (5) Hyperglycemia: Status: Acute Reason for Visit Reason for Visit: HYPERGLYCEMIA, COPD Hospital Course Hospital Course: Mingo presented to the hospital with shortness of breath. COPD exacerbation, and right lower lobe pneumonia were noted clinically as well as on x-ray. Blood sugar was markedly elevated. Venous duplex was negative. He was given a dose of IV steroids, and COVID tested as well. COVID ultimately was negative. With the IV steroids blood sugar went markedly high and he required an insulin drip. With blood sugar corrected he was changed to Lantus as well as Humalog. No further steroids were given. Frequent breathing treatments as well as Levaquin were continued. Patient improved significantly and by November 11 it was thought he could be discharged home. He will need to take long-acting insulin as well as short acting insulin with meals to control his sugar. He will finish up a course of Levaquin. He will need a repeat x-ray 2 to 3 weeks as directed by his primary care provider. He will resume his home oxygen and home trilogy. Advair was initiated this hospital stay as well. Amlodipine was increased secondary to elevated blood pressure. Physical Exam Narrative: EXAM NARRATIVE: General exam no apparent distress Cardiovascular regular rate and rhythm without murmur Lungs diminished breath sounds but clear. Abdomen is soft, positive bowel sounds Extremities no cyanosis clubbing or edema Discharge Data Data Completed and Pending: Completed Studies During Hospitalization Category Date Time Status XR chest 1V edmundo ble [id number] Stat Exams 11/09/19 13:05 [place] [id number] Routin e Ultrasound 11/10/19 07:00 Completed Pending at discharge Category Date Time Status Blood Culture Sta t Lab 11/09/19 13:32 Results Labs from last 24 hours 11/12/19 11/11/19 11/11/19 06:55 23:39 21:05 POC Glucose 328 273 374 11/11/19 11/11/19 16:03 10:51 POC Glucose 351 296 Vitals: Last Vital Signs Temp 97.6 F 11/12/19 08:00 Pulse 67 11/12/19 08:00 Resp 18 11/12/19 08:00 BP 161/84 11/12/19 08:00 Pulse Ox 95 11/12/19 08:00 Discharge Plan Discharge Patient Disposition: Home, Self-Care Condition: Stable Prescriptions: New amlodipine 10 mg Tablet 10 mg PO DAILY Qty: 30 RF: 0 Advair Diskus 500-50 mcg/dose Blister With Device 1 puff inhalation BID.RESPIRATORY Qty: 1 RF: 0 Lantus Solostar U-100 Insulin 100 unit/mL (3 mL) insulin pen 35 unit SUBCUT DAILY Qty: 15 RF: 0 Levaquin 750 mg tablet 750 mg PO DAILY 7 Days Qty: 7 RF: 0 Humalog KwikPen Insulin 100 unit/mL insulin pen 12 unit SUBCUT TID Qty: 15 RF: 0 Continued furosemide 40 mg tablet 40 mg PO DAILY RF: 0 metformin 500 mg tablet 500 mg PO BID RF: 0 Combivent Respimat 20-100 mcg/actuation mist 1 puff INHALATION QID RF: 0 aspirin 81 mg Tablet,Delayed Release (Dr/Ec) 81 mg PO DAILY RF: 0 Discontinued amlodipine 5 mg tablet 5 mg PO DAILY RF: 0 Discharge Orders: Discharge Order (Routine); Ordered 11/12/19 Ordered By: Ady Hernandes Referrals: Levine,FABIENNE Miguel [Referring] - (Clinic is closed. Could you please call patient at home with a follow up appointment in 4-7 days. Faxed this information to clinic) Discharge Diet: Diabetic Discharge Activity: Increase activity as tolerated Patient Instructions: COPD, Pneumonia (GEN), COPD Stoplight, Pneumonia Stoplight Activity Restrictions/Additional Instructions: Continue oxygen 5 L at home as well as trilogy Meds to beds on discharge Keep track of blood sugar, 3 times daily before meals and report to primary care provider on follow-up Arrange follow-up with primary care provider, 3 to 5 days. Primary care provider to evaluate with chest x-ray in 3 weeks to check for clearing of pneumonia. Discharge Attestations Time Spent in Discharge Care*: greater than 30 min Quality Metrics Clinical Quality Measures During this hospital stay, did patient experience: None Coding Level of Care Code Acute Clerk Entry Level for Chg Fwd Diagnoses Acute exacerbation of chronic obstructive pulmonary disease J44.1 Pneumonia J18.9 Acute respiratory failure with hypoxia J96.01 Hyperkalemia E87.5 Hyperglycemia R73.9
[2019-11-12 10:41] LABS: Glucose Point of Care 370 mg/dL (70-110)
[2019-11-12 11:28] LABS: Glucose Point of Care 345 mg/dL (70-110)
== END 2019-11-12 13:50 | disposition home or self-care (01) | DRG 193 ==
LOC: ER 15:13 → ICU 17:01 → MEDSURG 11-11 17:17
PROVIDERS: Emergency Medicine; Internal Medicine; Admitting Provider Internal Medicine; Visit Provider Internal Medicine
DX: J18.9 Pneumonia, unspecified organism (principal); J96.01 Acute respiratory failure with hypoxia; J44.1 Chronic obstructive pulmonary disease with (acute) exacerbation; I13.0 Hypertensive heart and chronic kidney disease with heart failure and stage 1 through stage 4 chronic kidney disease, or unspecified chronic kidney disease; I50.32 Chronic diastolic (congestive) heart failure; Z68.42 Body mass index [BMI] 45.0-49.9, adult; E87.2 Acidosis; J44.0 Chronic obstructive pulmonary disease with (acute) lower respiratory infection; E87.5 Hyperkalemia; Z20.828 Contact with and (suspected) exposure to other viral communicable diseases; E11.65 Type 2 diabetes mellitus with hyperglycemia; E11.22 Type 2 diabetes mellitus with diabetic chronic kidney disease; Z79.82 Long term (current) use of aspirin; Z79.84 Long term (current) use of oral hypoglycemic drugs; G47.33 Obstructive sleep apnea (adult) (pediatric); E66.01 Morbid (severe) obesity due to excess calories; N18.2 Chronic kidney disease, stage 2 (mild); F17.210 Nicotine dependence, cigarettes, uncomplicated; E11.40 Type 2 diabetes mellitus with diabetic neuropathy, unspecified; F12.20 Cannabis dependence, uncomplicated
CPT/HCPCS: 12345; 36415; 36416; 36600; 71045; 80048; 80051; 80053; 81001; 82810; 82962; 83036; 83605; 83735; 83880; 83986; 84100; 84132; 84443; 84484; 85025; 85610; 87040; 87070; 87205; 87635; 93005; 93970; 94640; 94660; 96372; 97161; 97530; 99284; J1650; J1815; J1956; J2930; J7030; J7050; J7626